=== PATIENT | male | born 1980 | race Two or more races ===

== ENCOUNTER → 2017-12-17 | Outpatient (CLI) | payer BC ==
--- NOTE | 2017-12-17 08:49 | US ---
EXAMINATION TYPE: US liver DATE OF EXAM: 12/17/2017 COMPARISON: NONE CLINICAL HISTORY: R94.5 ABN Results Of Liver Function Studies. abnormal labs, NPO EXAM MEASUREMENTS: Liver Length: 17.5 cm Gallbladder Wall: 0.2 cm CHD: 0.3 cm Right Kidney: 10.7 x 4.9 x 4.8 cm Pancreas: Appears slightly echogenic and heterogenous. Tail obscured by overlying bowel gas Liver: Echogenic. Heterogenous. No prominent masses or lesions seen. Gallbladder: wnl Evidence for sonographic Seay's sign: neg CBD: Obscured by overlying bowel gas CHD: wnl Right Kidney: wnl IMPRESSION: 1. Heterogenous echo appearance throughout the liver may reflect fatty hepatic infiltration.
== END | disposition home or self-care (01) ==
LOC: RADUSWWP 07:18
PROVIDERS: ATTEND Family Medicine
DX: K76.89 Other specified diseases of liver (principal)
CPT/HCPCS: 76705

== ENCOUNTER 2022-12-06 05:57 | Emergency (ER) | payer BC ==
[2022-12-06] MEDS ORDERED: cefTRIAXone IN SWFI 1,000 MG/10 ML SYRINGE IVP STA (06:23)
[2022-12-06] MEDS ORDERED: FAMOTIDINE 20 MG/2 ML VIAL IV STA (06:23)
[2022-12-06] MEDS ORDERED: diphenhydrAMINE 50 MG/ML 1 ML VIAL IVP STA (06:23)
[2022-12-06] MEDS ORDERED: DEXAMETHASONE SOD PHOSPHATE 10 MG/ML 1 ML VIAL IVP STA (06:23)
--- NOTE | 2022-12-06 06:23 | ED ---
General Adult HPI - General Chief complaint: ENT Stated complaint: Difficulty Breathing, Object in throat Time Seen by Provider: 12/06/22 06:15 Source: patient, RN notes reviewed Mode of arrival: ambulatory Limitations: no limitations - History of Present Illness Initial comments: This is a 42-year-old male presents emergency Department with chief complaint of difficulty swallowing. Patient states he woke up this morning felt that as he was gagging. He states that his uvula was slightly swollen and makes it difficult to swallow. He has no associated pain denies fevers or chills. Patient states that he had no difficulty eating drinking swallowing or breathing yesterday. Patient has not taken anything for this morning. He is able swallow water without difficulty patient has NO KNOWN DRUG ALLERGIES. - Related Data Previous Rx's Medication Instructions Recorded Amoxicillin 800 mg PO BID #200 ml 12/06/22 Famotidine/Ca Carb/Mag Hydrox 1 tab PO BID #30 tab 12/06/22 [Pepcid Complete Tablet Chew] diphenhydrAMINE HCL [Children's 50 mg PO QID PRN #200 ml 12/06/22 Benadryl Allergy] prednisoLONE ORAL 15MG/5ML CAMRON 15 mg PO DAILY #60 ml 12/06/22 [Prelone] Allergies Allergy/AdvReac Type Severity Reaction Status Date / Time No Known Allergies Allergy Verified 12/06/22 06:06 Review of Systems ROS Statement: Those systems with pertinent positive or pertinent negative responses have been documented in the HPI. ROS Other: All systems not noted in ROS Statement are negative. Past Medical History Past Medical History: Hypertension History of Any Multi-Drug Resistant Organisms: None Reported Past Surgical History: No Surgical Hx Reported Smoking Status: Never smoker Past Alcohol Use History: Occasional Past Drug Use History: None Reported General Exam Limitations: no limitations General appearance: alert, in no apparent distress Head exam: Present: atraumatic, normocephalic, normal inspection Eye exam: Present: normal appearance, PERRL, EOMI. Absent: scleral icterus, conjunctival injection, periorbital swelling ENT exam: Present: mucous membranes moist, TM's normal bilaterally, normal external ear exam. Absent: normal exam, normal oropharynx (This is a swollen uvula with mild erythema, swallowing secretions) Neck exam: Present: normal inspection, full ROM. Absent: tenderness, meningismus, lymphadenopathy Respiratory exam: Present: normal lung sounds bilaterally. Absent: respiratory distress, wheezes, rales, rhonchi, stridor Cardiovascular Exam: Present: regular rate, normal rhythm, normal heart sounds. Absent: systolic murmur, diastolic murmur, rubs, gallop, clicks Neurological exam: Present: alert Skin exam: Present: warm, dry, intact, normal color. Absent: rash Course Vital Signs 12/06/22 06:03 Pulse Rate 93 Respiratory 18 Rate Blood Pressure 134/88 O2 Sat by Pulse 99 Oximetry Medical Decision Making - Medical Decision Making Was pt. sent in by a medical professional or institution (, [employer], CORPORATE STAFF ACCOUNTANT, urgent care, hospital, or [place] health care facility...) When possible be specific @ -No Did you speak to anyone other than the patient for history (EMS, parent, family, police, friend...)? What history was obtained from this source @ -No Did you review nursing and triage notes (agree or disagree)? Why? @ -I reviewed and agree with nursing and triage notes Were old charts reviewed (outside hosp., previous admission, EMS record, old EKG, old radiological studies, urgent care reports/EKG's, [place] [facility] facility records)? Report findings @ -No old charts were reviewed Differential Diagnosis (chest pain, altered mental status, abdominal pain women, abdominal pain men, vaginal bleeding, weakness, fever, dyspnea, syncope, headache, dizziness, GI bleed, back pain, seizure, CVA, palpatations, mental health, musculoskeletal)? @ -Uvulitis, strep pharyngitis, tonsillitis, esophageal foreign body, this list is not all inclusive EKG interpreted by me (3pts min.). @ -As above X-rays interpreted by me (1pt min.). @ -X-rays chest, soft tissue neck no acute abnormality noted CT interpreted by me (1pt min.). @ -None done U/S interpreted by me (1pt. min.). @ -None done What testing was considered but not performed or refused? (CT, X-rays, U/S, labs)? Why? @ -None What meds were considered but not given or refused? Why? @ -None Did you discuss the management of the patient with other professionals (professionals i.e. FERM[employer]N Irwin, CORPORATE STAFF ACCOUNTANT, lab, RT, psych nurse, social scientist, pasta press operator, teacher, principal gifts officer, case maker)? Give summary @ -No Was smoking cessation discussed for >3mins.? @ -No Was critical care preformed (if so, how long)? @ -No Were there social determinants of health that impacted care today? How? (Homelessness, low income, unemployed, alcoholism, drug addiction, transportation, low edu. Level, literacy, decrease access to med. care, nursing home, rehab)? @ -No Was there de-escalation of care discussed even if they declined (Discuss DNR or withdrawal of care, Hospice)? DNR status @ -No What co-morbidities impacted this encounter? (DM, HTN, Smoking, COPD, CAD, Cancer, CVA, ARF, Chemo, Hep., AIDS, mental health diagnosis, sleep apnea, morbid obesity)? @ -None Was patient admitted / discharged? Hospital course, mention meds given and route, prescriptions, significant lab abnormalities, going to OR and other pertinent info. @ -Discharge patient has uvulitis patient has no signs of distress. There is some concern there is some underlying esophagitis, reflux issues. Patient will follow-up with GI. We discussed possibility of his lisinopril causing issues though felt less likely as he does not have generalized angioedema. Undiagnosed new problem with uncertain prognosis? @ -No Drug Therapy requiring intensive monitoring for toxicity (Heparin, Nitro, Insulin, Cardizem)? @ -No Were any procedures done? @ -No Diagnosis/symptom? @ -Uvulitis Acute, or Chronic, or Acute on Chronic? @ -Acute Uncomplicated (without systemic symptoms) or Complicated (systemic symptoms)? @ -Uncomplicated Side effects of treatment? @ -No Exacerbation, Progression, or Severe Exacerbation? @ -No Poses a threat to life or bodily function? How? (Chest pain, [place], [place], pneumonia, PE, COPD, DKA, ARF, appy, cholecystitis, CVA, Diverticulitis, Homicidal, Suicidal, threat to staff... and all critical care pts) @ -No Disposition Clinical Impression: Uvulitis Disposition: HOME SELF-CARE Condition: Stable Additional Instructions: Please discussed with your PCP regarding her lisinopril symptoms persist. Please return to the Emergency Department if symptoms worsen or any other concerns. Prescriptions: Amoxicillin 800 mg PO BID #200 ml diphenhydrAMINE HCL [Children's Benadryl Allergy] 50 mg PO QID PRN #200 ml PRN Reason: Allergic Reaction Famotidine/Ca Carb/Mag Hydrox [Pepcid Complete Tablet Chew] 1 tab PO BID #30 tab prednisoLONE ORAL 15MG/5ML CAMRON [Prelone] 15 mg PO DAILY #60 ml Is patient prescribed a controlled substance at d/c from ED?: No Referrals: Adelfo Yi DO [Primary Care Provider] - 1-2 days Nichole Park MD [STAFF PHYSICIAN] - 1-2 days Time of Disposition: 08:13
--- NOTE | 2022-12-06 07:09 | XR ---
EXAMINATION TYPE: XR chest 2V DATE OF EXAM: 12/06/2022 COMPARISON: NONE HISTORY: Shortness of breath TECHNIQUE: Frontal and lateral views of the chest are obtained. FINDINGS: There is no focal air space opacity, pleural effusion, or pneumothorax seen. The cardiac silhouette size is upper limits of normal. The osseous structures are intact. IMPRESSION: No acute process.
--- NOTE | 2022-12-06 07:10 | XR ---
EXAMINATION TYPE: XR soft tissue neck DATE OF EXAM: 12/06/2022 COMPARISON: NONE HISTORY: Dysphagia. TECHNIQUE: 2 view soft tissue neck. FINDINGS: Loss of normal cervical curvature may be positional. No suspicious prevertebral soft tissue swelling. Patent nasopharyngeal airway. Region of epiglottis and vallecula appears within normal flood its. No suspicious narrowing of the subglottic airway on the frontal view. Overlying soft tissue is u nremarkable. IMPRESSION: As above. Fairly unremarkable study.
[2022-12-06] MEDS ORDERED: MAG HYDROX/AL HYDROX/SIMETH 30 ML, HYOSCYAMINE ELIXIR 10 ML, LIDOCAINE VISCOUS 2% 10 ML PO STA ×3 (08:10)
[2022-12-06 09:15] VITALS: BP 104/74; PULSE 62; RESP 16; TEMP 98.2
== END 2022-12-06 08:52 | disposition home or self-care (01) ==
LOC: EC 05:57
DX: K12.2 Cellulitis and abscess of mouth (principal); I10 Essential (primary) hypertension
CPT/HCPCS: 70360; 71046; 99284; 96374; 96375 ×3; J1200; J1100; J0696